=== PATIENT | female | born 1980 ===

== ENCOUNTER 2018-12-13 10:26 | Day surgery (SDC) | payer OTHER | END 2018-12-13 14:50 | disposition home or self-care (01) | LOC: AMB-ENDOS 10:26 | DX: D13.1 Benign neoplasm of stomach (principal) ==

== ENCOUNTER 2024-08-29 08:32 | Day surgery (SDC) | payer OTHER ==
[2024-08-22 10:58] LABS: PH,URINE 5.5 (5.0-8.0); URINE APPEARANCE Clear; URINE BILIRRUBIN Negative (NEGATIVE); URINE BLOOD NHT; URINE COLOR Yellow; URINE GLUCOSE Negative (NEGATIVE); URINE KETONE Negative (NEGATIVE); URINE LEUKOCYTE Negative; URINE NITRATE Negative; URINE PROTEIN Negative (NEGATIVE); URINE UROBILINOGEN 0.2 E.U./dl
[2024-08-22 11:08] LABS: URINE BACTERIA 282.7 uL (0.0-1933); URINE EPITHELIAL CELLS 15.3 uL (0.0-38.8); URINE RBC 5.4 uL (0.0-20.8); URINE WBC 5.3 uL (0.0-23.2)
[2024-08-22 11:09] LABS: MEAN CELL VOLUME 75.1 fL (80.00-100.00); MEAN CORPUSCULAR HGB CONC 32.8 g/dl (32.0-36.0); PLATELET COUNT 270 K/uL (150-450)
[2024-08-22 11:10] VITALS: BP 138/83
[2024-08-22 11:10] LABS: URINE CAST 0.29 uL (0.0-1.40)
[2024-08-22 11:14] LABS: HEMOGLOBIN 8.9 g/dL (12.0-15.00); MEAN CORPUSCULAR HEMOGLOBIN 24.7 pg (27.00-32.0); RED CELL DISTRIBUTION WIDTH 18.1 % (11.5-14.5)
[2024-08-22 11:20] LABS: PARTIAL THROMBOPLASTIN TIME 24.5 SECONDS (22.0-34.0); PROTHROMBIN TIME 10.9 SECONDS (9.0-11.5)
[2024-08-22 11:44] LABS: ALBUMIN 3.3 gm/dL (3.4-5.0); BILIRUBIN TOTAL 0.36 mg/dL (0.3-1.2); CALCIUM 8.6 mg/dL (8.5-10.1); CREATININE SERUM 0.57 mg/dL (0.55-1.02); GFR 115.22; GLOBULINA 3.5 G/DL (2.4-3.5); POTASSIUM 4.29 mEq/L (3.5-5.1); TOTAL PROTEIN 6.8 gm/dL (6.4-8.2)
[2024-08-22 18:38] LABS: TSH 1.91 uIU/mL (0.358-3.74)
[~2024-08-29] VITALS: Ht 157.5 cm; Wt 71.7 kg
[2024-08-29 10:13] LABS: RH POSITIVE
[2024-08-29] MEDS ORDERED: MORPHINE SULFATE 4 MG/ML VIAL IV PRN (15:30)
[2024-08-29] MEDS ORDERED: PROMETHAZINE HCL 50 MG/ML AMPUL IM ONE (15:30)
[2024-08-29] MEDS ORDERED: MONODOX100 MG PO (15:38)
[2024-08-29] MEDS ORDERED: NAPR500T14 PO (15:38)
[2024-08-29] MEDS ORDERED: POVIDONE-IODINE 118 ML BOTT TOP ONE (16:00)
[2024-08-29] MEDS ORDERED: CEFOXITIN SODIUM 2,000 MG VIAL IV ONE (16:00)
== END 2024-08-29 17:20 | disposition home or self-care (01) ==
LOC: CIR.AMB 08:32
PROVIDERS: ATTEND Obstetrics & Gynecology
DX: D25.0 Submucous leiomyoma of uterus (principal); N84.0 Polyp of corpus uteri; N92.0 Excessive and frequent menstruation with regular cycle